=== PATIENT | male | born 1950 | race Caucasian/White ===

== ENCOUNTER 2020-11-30 11:04 | Observation (INO) | payer OTHER ==
[2020-11-30 12:04] LABS: BASO % 0.6 % (0-2.0); EOS % 2.2 % (0-4.5); HEMATOCRIT 43.6 % (35.4-49); HEMOGLOBIN 14.7 GM/dL (11.7-16.9); LYMPH % 16.8 % (8-40); MCH 29.7 pg (25.7-33.7); MCHC 33.7 g/dl (32.0-35.9); MEAN PLT VOLUME 10.6 fl (7.5-11.1); MONO % 5.9 % (3.8-10.2); NEUT % 74.5 % (42.8-82.8); PLATELET COUNT 211 K/MM3 (134-434); RBC 4.95 M/mm3 (4.00-5.60); RDW 13.1 % (11.9-15.9); WHITE BLOOD COUNT 9.4 K/mm3 (4.0-10.0)
[2020-11-30 12:33] LABS: CHLORIDE 107 mmol/L (98-107); SODIUM 140 mmol/L (136-145)
[2020-11-30 12:35] LABS: ALBUMIN 4.1 g/dl (3.4-5.0); ANION GAP 9 MMOL/L (8-16); BLOOD UREA NITROGEN 23.9 mg/dL (7-18); CALCIUM 9.3 mg/dL (8.5-10.1); CO2 23 mmol/L (21-32)
[2020-11-30 12:36] LABS: GLUCOSE,RANDOM 201 mg/dL (74-106); MAGNESIUM 1.3 mg/dL (1.8-2.4)
[2020-11-30 12:39] LABS: CREATININE 1.1 mg/dL (0.55-1.3); SGOT/AST 13 U/L (15-37); SGPT/ALT 21 U/L (13-61)
[2020-11-30 12:40] LABS: BILIRUBIN,TOTAL 0.4 mg/dL (0.2-1); TOT PROT 7.3 g/dl (6.4-8.2)
[2020-11-30 12:41] LABS: ALK PHOS 56 U/L (45-117)
[2020-11-30 12:44] LABS: N-TERMINAL BNP 351.4 pg/ml (5-125)
[2020-11-30] MEDS ORDERED: MAGNESIUM 1GM/D5W - 1 GM/100 ML IVPB IVPB ONE (12:56)
[2020-11-30] MEDS: ATORVASTATIN CA 20 MG TABLET (FP) PO SCH (23:13)
[2020-12-01 02:52] VITALS: BMI 31.6
[2020-12-01] MEDS: INSULIN (NOVOLOG) ASPART 100 UNITS/ML 10ML VIAL SQ SCH ×2 (06:34→18:14)
[2020-12-01 07:59] LABS: BASO % 0.8 % (0-2.0); EOS % 3.1 % (0-4.5); HEMATOCRIT 42.2 % (35.4-49); HEMOGLOBIN 14.4 GM/dL (11.7-16.9); MCHC 34.2 g/dl (32.0-35.9); MEAN CELL VOLUME 87.8 fl (80-96); MEAN PLT VOLUME 10.8 fl (7.5-11.1); MONO % 6.5 % (3.8-10.2); NEUT % 63.6 % (42.8-82.8); PLATELET COUNT 189 K/MM3 (134-434); RDW 13.1 % (11.9-15.9); WHITE BLOOD COUNT 8.3 K/mm3 (4.0-10.0)
[2020-12-01 08:13] LABS: CALCIUM 9.4 mg/dL (8.5-10.1)
[2020-12-01 08:14] LABS: ALBUMIN 3.8 g/dl (3.4-5.0); BLOOD UREA NITROGEN 22.1 mg/dL (7-18)
[2020-12-01 08:17] LABS: CREATININE 0.9 mg/dL (0.55-1.3)
[2020-12-01 08:18] LABS: BILIRUBIN,TOTAL 0.6 mg/dL (0.2-1); TOT PROT 6.7 g/dl (6.4-8.2)
[2020-12-01] MEDS: FINASTERIDE 5 MG TABLET (FP) PO SCH (09:50)
[2020-12-01] MEDS: ASPIRIN 81 MG CHEWABLE TABLETS PO SCH (14:05)
[2020-12-01] MEDS: metoPROLOL SUCCINATE 25 MG TAB.SR.24H (FP) PO SCH (18:14)
[2020-12-01] MEDS: ATORVASTATIN CA 20 MG TABLET (FP) PO SCH (21:33)
[2020-12-01] MEDS ORDERED: ACETAMINOPHEN 325 MG TABLET (FP) PO ONE (22:50)
[2020-12-02] MEDS ORDERED: CALCIUM CARBONATE 650 MG TABLET PO ONE (00:35)
[2020-12-02] MEDS ORDERED: INSULIN SLIDING SCALE (NOVOLOG) 1 VIAL SQ SCH (00:35)
[2020-12-02 05:25] VITALS: BP 144/55; PULSE 75; TEMP 98.8
[2020-12-02] MEDS: FINASTERIDE 5 MG TABLET (FP) PO SCH (09:25)
[2020-12-02] MEDS: metoPROLOL SUCCINATE 25 MG TAB.SR.24H (FP) PO SCH (09:25)
[2020-12-02] MEDS: ASPIRIN 81 MG CHEWABLE TABLETS PO SCH (09:25)
[2020-12-02] MEDS ORDERED: ENALAPRIL MALEATE 5 MG TABLET PO SCH (10:00)
[2020-12-02] MEDS ORDERED: ENALAPRIL MALEATE 2.5 MG TABLET PO SCH (10:00)
== END 2020-12-02 15:28 ==
LOC: JER 11:04 → JERBED 11:38 → J4W 22:32
PROVIDERS: ADMIT Internal Medicine; ATTEND Internal Medicine
PROC: 3E013VG Introduction of Insulin into Subcutaneous Tissue, Percutaneous Approach (ICD-10-PCS; principal; 2020-11-30)
PROC: 3E033GC Introduction of Other Therapeutic Substance into Peripheral Vein, Percutaneous Approach (ICD-10-PCS; 2020-11-30)
DX: R00.0 Tachycardia, unspecified (principal); R07.9 Chest pain, unspecified; E13.9 Other specified diabetes mellitus without complications; I10 Essential (primary) hypertension; E78.5 Hyperlipidemia, unspecified; E66.9 Obesity, unspecified; Z68.31 Body mass index [BMI] 31.0-31.9, adult; K21.9 Gastro-esophageal reflux disease without esophagitis; N40.0 Benign prostatic hyperplasia without lower urinary tract symptoms
CPT/HCPCS: 36415; 71046-TC-FY; 74019-TC-FY; 80053; 80061; 82550; 82962; 83036; 83721; 83735; 83880; 84443; 84484; 85025; 85379; 93005; 93010; 93306-TC; 96365; 96372; 99285-25; C9803; G0378; U0003

== ENCOUNTER 2022-02-22 08:18 | Observation (INO) | payer OTHER ==
[2022-02-22 09:34] LABS: BASO % 0.4 % (0-2.0); EOS % 3.2 % (0-4.5); HEMATOCRIT 42.7 % (35.4-49); HEMOGLOBIN 14.7 GM/dL (11.7-16.9); LYMPH % 17.9 % (8-40); MCHC 34.3 g/dl (32.0-35.9); MEAN CELL VOLUME 84.5 fl (80-96); MONO % 6.6 % (3.8-10.2); NEUT % 71.9 % (42.8-82.8); PLATELET COUNT 208 10^3/uL (134-434); RBC 5.05 M/mm3 (4.00-5.60); RDW 13.4 % (11.9-15.9); WHITE BLOOD COUNT 8.1 K/mm3 (4.0-10.0)
[2022-02-22 09:41] LABS: INR 1.01 (0.83-1.09); PROTHROMBIN TIME (PATIENT) 11.6 SEC (9.7-13.0)
[2022-02-22 09:59] LABS: ALBUMIN 3.8 g/dl (3.4-5.0); CALCIUM 9.2 mg/dL (8.5-10.1)
[2022-02-22 10:01] LABS: BLOOD UREA NITROGEN 13.1 mg/dL (7-18)
[2022-02-22 10:04] LABS: BILIRUBIN,TOTAL 0.4 mg/dL (0.2-1); CREATININE 0.8 mg/dL (0.55-1.3); TOT PROT 6.8 g/dl (6.4-8.2)
[2022-02-22] MEDS ORDERED: ASPIRIN 81 MG CHEWABLE TABLETS PO ONE (10:27)
[2022-02-22] MEDS ORDERED: ASPIRIN 81 MG CHEWABLE TABLETS ONE (11:02)
[2022-02-22] MEDS ORDERED: ACETAMINOPHEN 325 MG TABLET (FP) PO PRN (13:47)
[2022-02-22] MEDS: INSULIN SLIDING SCALE (NOVOLOG) 1 VIAL SQ SCH ×2 (19:00→23:05)
[2022-02-22] MEDS ORDERED: metFORMIN HCL 500 MG TABLET (FP) ONE (21:18)
[2022-02-22] MEDS ORDERED: ISOSORBIDE MONONITRATE 30 MG TAB.SR.24H (FP) PO ONE (21:18)
[2022-02-22] MEDS ORDERED: ATORVASTATIN CA 20 MG TABLET (FP) ONE (21:18)
[2022-02-22] MEDS ORDERED: ATORVASTATIN CA 20 MG TABLET (FP) PO SCH (22:00)
[2022-02-22] MEDS ORDERED: GLIMEPIRIDE 4 MG TABLET PO SCH (22:00)
[2022-02-22] MEDS: metFORMIN HCL 500 MG TABLET (FP) PO SCH (23:05)
[2022-02-22] MEDS: ISOSORBIDE MONONITRATE 30 MG TAB.SR.24H (FP) PO SCH (23:05)
[2022-02-22] MEDS: HEPARIN NA (PORCINE) 5,000 UNITS/ML 1ML VIAL SQ SCH (23:05)
[2022-02-23 05:17] VITALS: BMI 34.9
[2022-02-23] MEDS: metFORMIN HCL 500 MG TABLET (FP) PO SCH (06:29)
[2022-02-23] MEDS: INSULIN SLIDING SCALE (NOVOLOG) 1 VIAL SQ SCH ×2 (06:29→11:44)
[2022-02-23] MEDS ORDERED: GLIMEPIRIDE 4 MG TABLET PO SCH (07:00)
[2022-02-23 08:56] VITALS: BP 138/71; PULSE 81; TEMP 98.3
[2022-02-23] MEDS: HEPARIN NA (PORCINE) 5,000 UNITS/ML 1ML VIAL SQ SCH (09:31)
[2022-02-23] MEDS: ISOSORBIDE MONONITRATE 30 MG TAB.SR.24H (FP) PO SCH (09:46)
[2022-02-23] MEDS ORDERED: amLODIPine BESYLATE 10 MG TABLET (FP) PO SCH (10:00)
[2022-02-23] MEDS ORDERED: PANTOPRAZOLE 40 MG TABLET PO SCH (10:00)
[2022-02-23] MEDS ORDERED: LOSARTAN POTASSIUM 50 MG TABLET PO SCH (10:00)
[2022-02-23] MEDS ORDERED: FINASTERIDE 5 MG TABLET (FP) PO SCH (10:00)
[2022-02-23 12:47] LABS: BASO % 0.6 % (0-2.0); EOS % 2.4 % (0-4.5); HEMATOCRIT 41.6 % (35.4-49); LYMPH % 21.9 % (8-40); MCH 28.8 pg (25.7-33.7); MCHC 33.6 g/dl (32.0-35.9); MEAN CELL VOLUME 85.6 fl (80-96); MEAN PLT VOLUME 9.9 fl (7.5-11.1); MONO % 5.2 % (3.8-10.2); NEUT % 69.9 % (42.8-82.8); PLATELET COUNT 237 10^3/uL (134-434); RBC 4.85 M/mm3 (4.00-5.60); RDW 13.4 % (11.9-15.9); WHITE BLOOD COUNT 7.6 K/mm3 (4.0-10.0)
[2022-02-23 13:07] LABS: CALCIUM 9.5 mg/dL (8.5-10.1)
[2022-02-23 13:08] LABS: ALBUMIN 3.7 g/dl (3.4-5.0); BLOOD UREA NITROGEN 17.2 mg/dL (7-18)
[2022-02-23 13:11] LABS: CREATININE 0.9 mg/dL (0.55-1.3)
[2022-02-23 13:12] LABS: BILIRUBIN,TOTAL 0.5 mg/dL (0.2-1); TOT PROT 6.8 g/dl (6.4-8.2)
== END 2022-02-23 17:11 ==
LOC: JER 08:18 → JERBED 13:18 → J4W 02-23 05:50
PROVIDERS: ADMIT Internal Medicine; ATTEND Internal Medicine
PROC: 3E013VG Introduction of Insulin into Subcutaneous Tissue, Percutaneous Approach (ICD-10-PCS; principal; 2022-02-22)
DX: I25.10 Atherosclerotic heart disease of native coronary artery without angina pectoris (principal); E11.65 Type 2 diabetes mellitus with hyperglycemia; R07.9 Chest pain, unspecified; E66.9 Obesity, unspecified; Z68.34 Body mass index [BMI] 34.0-34.9, adult; I11.9 Hypertensive heart disease without heart failure; N40.0 Benign prostatic hyperplasia without lower urinary tract symptoms; K21.9 Gastro-esophageal reflux disease without esophagitis; E78.00 Pure hypercholesterolemia, unspecified
CPT/HCPCS: 36415; 71046-TC-FY; 80053; 82962; 84443; 84484; 85025; 85379; 85610; 86850; 86900; 86901; 93005; 93010; 93971-TC; 96372; 99285-25; C9803-CS; G0378; J1644; U0003; U0005

== ENCOUNTER 2022-05-30 10:47 | Emergency (ER) | payer OTHER ==
[2022-05-30 11:04] VITALS: BP 155/92; PULSE 86; RESP 18; TEMP 98.5; BMI 26.9
[2022-05-30 13:45] LABS: BASO % 0.5 % (0-2.0); EOS % 0.8 % (0-4.5); HEMATOCRIT 40.3 % (35.4-49); HEMOGLOBIN 13.5 GM/dL (11.7-16.9); LYMPH % 13.4 % (8-40); MCH 29.1 pg (25.7-33.7); MCHC 33.6 g/dl (32.0-35.9); MEAN CELL VOLUME 86.6 fl (80-96); MEAN PLT VOLUME 9.3 fl (7.5-11.1); MONO % 6.7 % (3.8-10.2); NEUT % 78.6 % (42.8-82.8); PLATELET COUNT 256 10^3/uL (134-434); RBC 4.65 M/mm3 (4.00-5.60); RDW 13.8 % (11.9-15.9); WHITE BLOOD COUNT 11.2 K/mm3 (4.0-10.0)
[2022-05-30 14:05] LABS: ALBUMIN 3.9 g/dl (3.4-5.0); BLOOD UREA NITROGEN 13.7 mg/dL (7-18); CALCIUM 9.9 mg/dL (8.5-10.1)
[2022-05-30 14:08] LABS: CREATININE 0.9 mg/dL (0.55-1.3)
[2022-05-30 14:10] LABS: BILIRUBIN,TOTAL 0.4 mg/dL (0.2-1); TOT PROT 7.1 g/dl (6.4-8.2)
== END 2022-05-30 14:58 | disposition home or self-care (01) ==
LOC: JERFT 10:47 → JER 10:47 → JERFT 14:58
DX: L03.113 Cellulitis of right upper limb (principal)
CPT/HCPCS: 36415; 80053; 85025; 87040; 99283-25

== ENCOUNTER 2022-07-07 09:55 | Emergency (ER) | payer OTHER ==
[2022-07-07 10:01] VITALS: BP 167/76; PULSE 73; RESP 18; TEMP 97.6; BMI 34.3
== END 2022-07-07 13:34 | disposition home or self-care (01) ==
LOC: JER 09:55
DX: U07.1 COVID-19 (principal)
CPT/HCPCS: 0241U-QW; 99283-25

== ENCOUNTER 2022-08-27 10:07 | Inpatient (IN) | payer OTHER ==
[2022-08-27 10:37] VITALS: BMI 35.0
[2022-08-27 11:52] LABS: HEMATOCRIT 39.9 % (35.4-49); HEMOGLOBIN 13.2 GM/dL (11.7-16.9); MCH 28.8 pg (25.7-33.7); MCHC 33.1 g/dl (32.0-35.9); MEAN CELL VOLUME 87.1 fl (80-96); MEAN PLT VOLUME 10.7 fl (7.5-11.1); PLATELET COUNT 235 10^3/uL (134-434); RBC 4.58 M/mm3 (4.00-5.60); RDW 14.8 % (11.9-15.9); WHITE BLOOD COUNT 16.7 K/mm3 (4.0-10.0)
[2022-08-27 12:05] LABS: VENOUS BASE EXCESS -3.3 mmol/L (-2-2); VENOUS PH 7.329 (7.310-7.410)
[2022-08-27 12:14] LABS: CHLORIDE 100 mmol/L (98-107); SODIUM 142 mmol/L (136-145)
[2022-08-27 12:15] LABS: CALCIUM 9.3 mg/dL (8.5-10.1)
[2022-08-27 12:17] LABS: BLOOD UREA NITROGEN 30.3 mg/dL (7-18); GLUCOSE,RANDOM 391 mg/dL (74-106)
[2022-08-27 12:19] LABS: ALBUMIN 3.6 g/dl (3.4-5.0); ANION GAP 17 MMOL/L (8-16); CO2 24 mmol/L (21-32); CREATININE 1.4 mg/dL (0.55-1.3); MAGNESIUM 1.7 mg/dL (1.8-2.4); PHOSPHOROUS 2.9 mg/dL (2.5-4.9); SGOT/AST 560 U/L (15-37); SGPT/ALT 520 U/L (13-61)
[2022-08-27 12:20] LABS: BILIRUBIN,TOTAL 2.8 mg/dL (0.2-1)
[2022-08-27 12:25] LABS: ALK PHOS 125 U/L (45-117); N-TERMINAL BNP 20962.5 pg/ml (5-125)
[2022-08-27 12:28] LABS: ANISOCYTOSIS 0; HELMET CELLS 0; HOWELL-JOLLY BODIES 0; MACROCYTOSIS 0; OVALOCYTE 0; ROULEAU 0; SICKELED CELLS 0; TARGET CELLS 0; TEAR DROP CELLS 0; TOXIC GRANULATION 0
[2022-08-27] MEDS ORDERED: ASPIRIN 325 MG TABLET PO ONE (13:11)
[2022-08-27] MEDS ORDERED: HEPARIN NA (PORCINE) 5,000 UNITS/ML 1ML VIAL IVPUSH PRN ×2 (13:16)
[2022-08-27] MEDS ORDERED: CLOPIDOGREL BISULFATE 300 MG TABLET PO ONE ×2 (13:17→15:29)
[2022-08-27] MEDS ORDERED: CEFTRIAXONE 1 GM in DEXTROSE 5%-WATER - 50 ML IVPB ONE (13:18)
[2022-08-27] MEDS ORDERED: AZITHROMYCIN IVPB 250 MG in DEXTROSE 5%-WATER - 250 ML IVPB ONE (13:18)
[2022-08-27] MEDS ORDERED: ASPIRIN 325 MG TABLET ONE (13:20)
[2022-08-27] MEDS ORDERED: CLOPIDOGREL BISULFATE 300 MG TABLET ONE ×2 (13:20→16:04)
[2022-08-27] MEDS ORDERED: HEPARIN SOD,PORK IN 0.45% NACL 25,000 UNITS/500 ML INFUS.BAG IVPB SCH (13:30)
[2022-08-27] MEDS ORDERED: CEFTRIAXONE 1 GM/50 ML BAG ONE (13:31)
[2022-08-27] MEDS ORDERED: WATER IVPB ONE ×2 (13:35→14:00)
[2022-08-27] MEDS ORDERED: DEXTROSE 5% IVPB ONE ×2 (13:35→14:00)
[2022-08-27] MEDS ORDERED: ACETYLCYSTEINE IVPB ONE ×2 (13:35→14:00)
[2022-08-27 13:44] LABS: INR 1.39 (0.83-1.09)
[2022-08-27 13:46] LABS: ACTIVATED PTT 32.7 SECONDS (25.2-36.5)
[2022-08-27 13:55] LABS: CHLORIDE 101 mmol/L (98-107)
[2022-08-27 13:56] LABS: CALCIUM 8.4 mg/dL (8.5-10.1)
[2022-08-27 13:57] LABS: BLOOD UREA NITROGEN 31.9 mg/dL (7-18); CO2 24 mmol/L (21-32); GLUCOSE,RANDOM 381 mg/dL (74-106)
[2022-08-27] MEDS ORDERED: FUROSEMIDE 40 MG/4 ML INJECTABLE VIAL IVPUSH ONE (13:59)
[2022-08-27 14:01] LABS: SGOT/AST 437 U/L (15-37); SGPT/ALT 436 U/L (13-61)
[2022-08-27 14:04] LABS: ALK PHOS 100 U/L (45-117)
[2022-08-27 14:05] LABS: N-TERMINAL BNP 19721.7 pg/ml (5-125)
[2022-08-27] MEDS ORDERED: HEPARIN NA (PORCINE) 5,000 UNITS/ML 1ML VIAL IVPUSH ONE (14:10)
[2022-08-27 14:13] LABS: ANION GAP 15 MMOL/L (8-16); BILIRUBIN,TOTAL 1.9 mg/dL (0.2-1); CREATININE 1.5 mg/dL (0.55-1.3); SODIUM 141 mmol/L (136-145)
[2022-08-27] MEDS ORDERED: FUROSEMIDE 40 MG/4 ML INJECTABLE VIAL ONE (14:14)
[2022-08-27] MEDS ORDERED: HEPARIN NA (PORCINE) 5,000 UNITS/ML 1ML VIAL ONE (14:14)
[2022-08-27] MEDS ORDERED: ATORVASTATIN CA 80 MG TABLET (FP) ONE (19:36)
[2022-08-27] MEDS: INSULIN SLIDING SCALE (NOVOLOG) 1 VIAL SQ SCH ×2 (19:40→21:43)
[2022-08-27] MEDS ORDERED: PATIENT'S OWN MEDICATION (NON-FORMULARY) (Metformin Hcl [Metformin Er Osmotic] 1,000 MG Ta PO SCH (22:00)
[2022-08-27] MEDS ORDERED: CHLORHEXIDINE GLUCONATE 4% CLEANSER FOR DECOLONIZATION TP SCH (22:00)
[2022-08-27] MEDS ORDERED: MUPIROCIN 2% TOPICAL OINTMENT FOR DECOLONIZATION NS SCH (22:00)
[2022-08-27] MEDS ORDERED: ATORVASTATIN CA 40 MG TABLET (FP) PO SCH (22:00)
[2022-08-27] MEDS ORDERED: METOPROLOL TARTRATE 25 MG TABLET (FP) PO SCH (22:00)
[2022-08-27] MEDS ORDERED: ATORVASTATIN CA 20 MG TABLET (FP) PO SCH (22:00)
[2022-08-28 00:55] LABS: HEMATOCRIT 37.7 % (35.4-49); HEMOGLOBIN 12.3 GM/dL (11.7-16.9); MCH 28.5 pg (25.7-33.7); MCHC 32.7 g/dl (32.0-35.9); MEAN CELL VOLUME 87.2 fl (80-96); MEAN PLT VOLUME 11.4 fl (7.5-11.1); PLATELET COUNT 223 10^3/uL (134-434); RBC 4.33 M/mm3 (4.00-5.60); RDW 14.3 % (11.9-15.9); WHITE BLOOD COUNT 12.9 K/mm3 (4.0-10.0)
[2022-08-28 02:14] LABS: CALCIUM 8.9 mg/dL (8.5-10.1)
[2022-08-28 02:15] LABS: BLOOD UREA NITROGEN 36.9 mg/dL (7-18)
[2022-08-28 02:17] LABS: MAGNESIUM 1.8 mg/dL (1.8-2.4)
[2022-08-28 02:19] LABS: CREATININE 1.4 mg/dL (0.55-1.3); PHOSPHOROUS 1.8 mg/dL (2.5-4.9)
[2022-08-28 02:24] LABS: N-TERMINAL BNP 21616.8 pg/ml (5-125)
[2022-08-28] MEDS ORDERED: FUROSEMIDE 40 MG/4 ML INJECTABLE VIAL IVPUSH ONE (02:40)
[2022-08-28 05:06] LABS: ANISOCYTOSIS 3+; MACROCYTOSIS 0
[2022-08-28] MEDS: INSULIN SLIDING SCALE (NOVOLOG) 1 VIAL SQ SCH ×2 (06:28→11:36)
[2022-08-28 08:26] LABS: CHLORIDE 106 mmol/L (98-107); SODIUM 144 mmol/L (136-145)
[2022-08-28 08:31] LABS: ALBUMIN 2.8 g/dl (3.4-5.0); ANION GAP 13 MMOL/L (8-16); BLOOD UREA NITROGEN 39.8 mg/dL (7-18); CALCIUM 8.3 mg/dL (8.5-10.1); CO2 24 mmol/L (21-32); GLUCOSE,RANDOM 191 mg/dL (74-106); MAGNESIUM 1.8 mg/dL (1.8-2.4)
[2022-08-28 08:33] LABS: CREATININE 1.3 mg/dL (0.55-1.3); SGPT/ALT 306 U/L (13-61)
[2022-08-28 08:33] LABS: EPI CELLS 5 /uL (0-25.1); HYALINE CASTS 5 /uL (0-3.1); URINE APPEARANCE CLEAR; URINE BACTERIA 4 /uL (0-1359); URINE BILIRUBIN 2+ (NEGATIVE); URINE COLOR DK YELLOW; URINE GLUCOSE (UA) 3+ (NEGATIVE); URINE KETONE 1+ (NEGATIVE); URINE LEUK ESTERASE NEGATIVE (NEGATIVE); URINE NITRITE NEGATIVE (NEGATIVE); URINE PROTEIN 2+ (NEGATIVE); URINE RBC 54 /uL (0-23.9); URINE WBC 44 /uL (0-25.8)
[2022-08-28 08:34] LABS: CHOLESTEROL 139 mg/dL (50-200); LDL CHOLESTEROL (ONLY SJRH) 75 mg/dL (5-100); SGOT/AST 250 U/L (15-37); TOT PROT 5.8 g/dl (6.4-8.2); TRIGLYCERIDES 239 mg/dL (0-150)
[2022-08-28 08:35] LABS: BILIRUBIN,TOTAL 1.5 mg/dL (0.2-1)
[2022-08-28 08:36] LABS: ALK PHOS 96 U/L (45-117); HDL CHOLESTEROL 23 mg/dL (40-60); N-TERMINAL BNP 15963.4 pg/ml (5-125)
[2022-08-28] MEDS ORDERED: DOPAMINE 400 MG/D5W - 400,000 MCG/250 ML INFUS.BAG IVPB SCH (08:45)
[2022-08-28] MEDS ORDERED: ATORVASTATIN CA 40 MG TABLET (FP) PO SCH (09:49)
[2022-08-28] MEDS ORDERED: amLODIPine BESYLATE 10 MG TABLET (FP) PO SCH (10:00)
[2022-08-28] MEDS ORDERED: CLOPIDOGREL BISULFATE 75 MG TABLET (FP) PO SCH (10:00)
[2022-08-28] MEDS ORDERED: ASPIRIN 81 MG CHEWABLE TABLETS PO SCH (10:00)
[2022-08-28] MEDS ORDERED: MUPIROCIN 2% TOPICAL OINTMENT FOR DECOLONIZATION NS SCH (10:00)
[2022-08-28] MEDS ORDERED: PANTOPRAZOLE 40 MG TABLET PO SCH (10:00)
[2022-08-28] MEDS ORDERED: FINASTERIDE 5 MG TABLET (FP) PO SCH (10:00)
[2022-08-28] MEDS ORDERED: NITROGLYCERIN 25MG/D5W 250ML 25 MG/250 ML ML IVPB ONE (10:02)
[2022-08-28] MEDS ORDERED: POTASSIUM CHLORIDE ORAL LIQUID 20 MEQ/15 ML PO ONE (10:10)
[2022-08-28 10:49] VITALS: RESP 20
[2022-08-28 10:50] VITALS: TEMP 98.8
[2022-08-28] MEDS ORDERED: CEFTRIAXONE 1 GM in DEXTROSE 5%-WATER - 50 ML IVPB SCH ×2 (11:00→13:00)
[2022-08-28 11:22] VITALS: BP 98/54; PULSE 81
[2022-08-28] MEDS ORDERED: ROSUVASTATIN CA 20 MG TABLET PO SCH (22:00)
[2022-08-28] MEDS ORDERED: CHLORHEXIDINE GLUCONATE 4% CLEANSER FOR DECOLONIZATION TP SCH (22:00)
== END 2022-08-28 12:10 | disposition short-term general hospital (02) | DRG 280 ==
LOC: JER 10:07 → JERBED 14:58 → JICU 23:48
PROVIDERS: ADMIT Internal Medicine; ATTEND Internal Medicine
DX: I21.4 Non-ST elevation (NSTEMI) myocardial infarction (principal); I50.21 Acute systolic (congestive) heart failure; I50.33 Acute on chronic diastolic (congestive) heart failure; R57.0 Cardiogenic shock; J18.9 Pneumonia, unspecified organism; N17.9 Acute kidney failure, unspecified; I42.8 Other cardiomyopathies; J90 Pleural effusion, not elsewhere classified; E11.9 Type 2 diabetes mellitus without complications; I11.0 Hypertensive heart disease with heart failure; I48.91 Unspecified atrial fibrillation; I25.10 Atherosclerotic heart disease of native coronary artery without angina pectoris; K21.9 Gastro-esophageal reflux disease without esophagitis; E78.5 Hyperlipidemia, unspecified; N40.0 Benign prostatic hyperplasia without lower urinary tract symptoms; R74.01 Elevation of levels of liver transaminase levels
CPT/HCPCS: 0241U-QW; 36415; 71045-TC-FY; 71275-TC; 76705-TC; 80048; 80053; 80061; 80076; 80307; 81003; 82150; 82550; 82553; 82803; 82962; 83036; 83605; 83690; 83735; 83880; 84100; 84443; 84484; 85025; 85379; 85610; 85730; 86705; 86708; 86850; 86900; 86901; 87040; 87340; 87350; 87522; 93005; 93010; 93306-TC; 99291; J1644

== ENCOUNTER 2022-11-16 12:47 | Inpatient (IN) | payer OTHER ==
[2022-11-16 14:00] LABS: BASO % 0.4 % (0-2.0); EOS % 0.9 % (0-4.5); HEMATOCRIT 29.6 % (35.4-49); HEMOGLOBIN 9.9 GM/dL (11.7-16.9); MCH 29.8 pg (25.7-33.7); MCHC 33.3 g/dl (32.0-35.9); MEAN CELL VOLUME 89.3 fl (80-96); MEAN PLT VOLUME 9.8 fl (7.5-11.1); MONO % 4.9 % (3.8-10.2); NEUT % 81.8 % (42.8-82.8); PLATELET COUNT 260 10^3/uL (134-434); RBC 3.31 M/mm3 (4.00-5.60); RDW 15.7 % (11.9-15.9); WHITE BLOOD COUNT 9.4 K/mm3 (4.0-10.0)
[2022-11-16 14:09] LABS: INR 1.17 (0.83-1.09); PROTHROMBIN TIME (PATIENT) 13.5 SEC (9.7-13.0)
[2022-11-16 14:12] LABS: ACTIVATED PTT 30.2 SECONDS (25.2-36.5)
[2022-11-16 14:26] LABS: CHLORIDE 116 mmol/L (98-107); SODIUM 141 mmol/L (136-145)
[2022-11-16 14:28] LABS: CALCIUM 8.7 mg/dL (8.5-10.1)
[2022-11-16 14:29] LABS: ALBUMIN 3.1 g/dl (3.4-5.0); ANION GAP 12 MMOL/L (8-16); BLOOD UREA NITROGEN 39.6 mg/dL (7-18); CO2 14 mmol/L (21-32); GLUCOSE,RANDOM 191 mg/dL (74-106); MAGNESIUM 1.7 mg/dL (1.8-2.4)
[2022-11-16 14:32] LABS: CREATININE 1.7 mg/dL (0.55-1.3); SGOT/AST 56 U/L (15-37); SGPT/ALT 109 U/L (13-61)
[2022-11-16 14:34] LABS: BILIRUBIN,TOTAL 0.3 mg/dL (0.2-1)
[2022-11-16 14:35] LABS: ALK PHOS 143 U/L (45-117)
[2022-11-16 14:37] LABS: N-TERMINAL BNP 17507.2 pg/ml (5-125)
[2022-11-16] MEDS ORDERED: ASPIRIN 81 MG CHEWABLE TABLETS PO ONE (14:44)
[2022-11-16] MEDS ORDERED: ASPIRIN 81 MG CHEWABLE TABLETS ONE (14:49)
[2022-11-16] MEDS ORDERED: DEXAMETHASONE SOD PHOSPHATE 10 MG/1 ML VIAL IVPUSH ONE (15:01)
[2022-11-16 17:37] VITALS: BMI 30.9
[2022-11-16] MEDS ORDERED: ATORVASTATIN CA 20 MG TABLET (FP) PO SCH (22:00)
[2022-11-16] MEDS ORDERED: PATIENT'S OWN MEDICATION (NON-FORMULARY) (Simvastatin 40 MG Tablet) PO SCH (22:00)
[2022-11-17] MEDS: FINASTERIDE 5 MG TABLET (FP) PO SCH (09:06)
[2022-11-17] MEDS ORDERED: amLODIPine BESYLATE 10 MG TABLET (FP) PO SCH (10:00)
[2022-11-17] MEDS ORDERED: PATIENT'S OWN MEDICATION (NON-FORMULARY) (Metformin Hcl [Metformin Er Osmotic] 1,000 MG Ta PO SCH (10:00)
[2022-11-17] MEDS ORDERED: metoPROLOL SUCCINATE 25 MG TAB.SR.24H (FP) PO SCH (10:00)
[2022-11-17] MEDS ORDERED: hydrALAZINE HCL 50 MG TABLET (FP) PO SCH (10:00)
[2022-11-17] MEDS ORDERED: LOSARTAN POTASSIUM 50 MG TABLET PO SCH (10:00)
[2022-11-17] MEDS ORDERED: PATIENT'S OWN MEDICATION (NON-FORMULARY) (Losartan Potassium [Cozaar] 100 MG Tablet) PO SCH (10:00)
[2022-11-17] MEDS: FUROSEMIDE 40 MG/4 ML INJECTABLE VIAL IVPUSH SCH (10:03)
[2022-11-17] MEDS ORDERED: ERTAPENEM SODIUM 1 GM in SODIUM CHLORIDE 50 ML IVPB ONE (11:00)
[2022-11-17] MEDS ORDERED: CLOPIDOGREL BISULFATE 75 MG TABLET (FP) PO ONE ×2 (12:56→13:30)
[2022-11-17] MEDS: APIXABAN 5 MG TABLET PO SCH ×2 (13:32→21:47)
[2022-11-17] MEDS: ALBUTEROL SO4 2.5/IPRATROPIUM 0.5 INH SOL 3 ML VIAL.NEB. NEB PRN (21:30)
[2022-11-18 07:33] LABS: CREATININE 1.2 mg/dL (0.55-1.3)
[2022-11-18 07:34] LABS: ALBUMIN 3.3 g/dl (3.4-5.0); BLOOD UREA NITROGEN 27.2 mg/dL (7-18)
[2022-11-18 07:35] LABS: BILIRUBIN,TOTAL 0.4 mg/dL (0.2-1); TOT PROT 6.4 g/dl (6.4-8.2)
[2022-11-18 07:42] LABS: CALCIUM 9.4 mg/dL (8.5-10.1)
[2022-11-18] MEDS: ALBUTEROL SO4 2.5/IPRATROPIUM 0.5 INH SOL 3 ML VIAL.NEB. NEB PRN (08:13)
[2022-11-18 08:23] LABS: BASO % 0.2 % (0-2.0); EOS % 2.9 % (0-4.5); HEMATOCRIT 33.7 % (35.4-49); HEMOGLOBIN 11.2 GM/dL (11.7-16.9); MCH 29.2 pg (25.7-33.7); MCHC 33.1 g/dl (32.0-35.9); MEAN CELL VOLUME 88.1 fl (80-96); MEAN PLT VOLUME 9.7 fl (7.5-11.1); MONO % 5.9 % (3.8-10.2); PLATELET COUNT 291 10^3/uL (134-434); RBC 3.82 M/mm3 (4.00-5.60); RDW 15.9 % (11.9-15.9); WHITE BLOOD COUNT 10.7 K/mm3 (4.0-10.0)
[2022-11-18] MEDS: FINASTERIDE 5 MG TABLET (FP) PO SCH (09:58)
[2022-11-18] MEDS: APIXABAN 5 MG TABLET PO SCH ×2 (09:58→21:45)
[2022-11-18] MEDS: FUROSEMIDE 40 MG/4 ML INJECTABLE VIAL IVPUSH SCH (09:59)
[2022-11-18] MEDS: AMIODARONE HCL 200 MG TABLET PO SCH ×2 (09:59→21:45)
[2022-11-18] MEDS: CLOPIDOGREL BISULFATE 75 MG TABLET (FP) PO SCH (09:59)
[2022-11-19] MEDS ORDERED: FUROSEMIDE 40 MG/4 ML INJECTABLE VIAL IVPUSH ONE (06:08)
[2022-11-19 07:15] LABS: BLOOD UREA NITROGEN 27.2 mg/dL (7-18)
[2022-11-19 07:16] LABS: CALCIUM 9.1 mg/dL (8.5-10.1)
[2022-11-19 07:18] LABS: CREATININE 1.2 mg/dL (0.55-1.3)
[2022-11-19] MEDS: ALBUTEROL SO4 2.5/IPRATROPIUM 0.5 INH SOL 3 ML VIAL.NEB. NEB PRN (08:33)
[2022-11-19] MEDS: AMIODARONE HCL 200 MG TABLET PO SCH ×2 (09:51→21:59)
[2022-11-19] MEDS: FINASTERIDE 5 MG TABLET (FP) PO SCH (09:51)
[2022-11-19] MEDS: CLOPIDOGREL BISULFATE 75 MG TABLET (FP) PO SCH (09:51)
[2022-11-19] MEDS: APIXABAN 5 MG TABLET PO SCH ×2 (09:51→21:59)
[2022-11-19] MEDS: FUROSEMIDE 40 MG/4 ML INJECTABLE VIAL IVPUSH SCH ×2 (11:52→14:22)
[2022-11-20] MEDS: FUROSEMIDE 40 MG/4 ML INJECTABLE VIAL IVPUSH SCH ×2 (06:23→15:01)
[2022-11-20 07:51] LABS: ALBUMIN 3.2 g/dl (3.4-5.0); CALCIUM 9.3 mg/dL (8.5-10.1)
[2022-11-20 07:52] LABS: BLOOD UREA NITROGEN 32.2 mg/dL (7-18); MAGNESIUM 1.6 mg/dL (1.8-2.4)
[2022-11-20 07:54] LABS: BILIRUBIN,DIRECT 0.1 mg/dL (0.0-0.2)
[2022-11-20 07:55] LABS: CREATININE 1.3 mg/dL (0.55-1.3)
[2022-11-20 07:56] LABS: BILIRUBIN,TOTAL 0.6 mg/dL (0.2-1); TOT PROT 6.1 g/dl (6.4-8.2)
[2022-11-20] MEDS: SACUBITRIL/VALSARTAN 24 MG-26 MG TABLET PO SCH ×2 (10:50→22:05)
[2022-11-20] MEDS: AMIODARONE HCL 200 MG TABLET PO SCH ×2 (10:51→22:05)
[2022-11-20] MEDS: CLOPIDOGREL BISULFATE 75 MG TABLET (FP) PO SCH (10:52)
[2022-11-20] MEDS: FINASTERIDE 5 MG TABLET (FP) PO SCH (10:52)
[2022-11-20] MEDS: APIXABAN 5 MG TABLET PO SCH ×2 (10:52→22:06)
[2022-11-21] MEDS: FUROSEMIDE 40 MG/4 ML INJECTABLE VIAL IVPUSH SCH ×2 (06:26→14:08)
[2022-11-21] MEDS: APIXABAN 5 MG TABLET PO SCH ×2 (09:20→21:42)
[2022-11-21] MEDS: CLOPIDOGREL BISULFATE 75 MG TABLET (FP) PO SCH (09:20)
[2022-11-21] MEDS: AMIODARONE HCL 200 MG TABLET PO SCH ×2 (09:20→21:42)
[2022-11-21] MEDS: SACUBITRIL/VALSARTAN 24 MG-26 MG TABLET PO SCH ×2 (09:21→21:42)
[2022-11-21] MEDS: FINASTERIDE 5 MG TABLET (FP) PO SCH (09:21)
[2022-11-21] MEDS ORDERED: MAGNESIUM SULF 50% (8.12 MEQ/2 ML-1 GM VIAL) IVPB ONE (11:45)
[2022-11-22] MEDS: FUROSEMIDE 40 MG/4 ML INJECTABLE VIAL IVPUSH SCH ×2 (06:44→14:34)
[2022-11-22 08:31] LABS: BASO % 0.4 % (0-2.0); EOS % 2.6 % (0-4.5); HEMATOCRIT 35.6 % (35.4-49); HEMOGLOBIN 11.7 GM/dL (11.7-16.9); LYMPH % 11.7 % (8-40); MCH 28.5 pg (25.7-33.7); MCHC 32.8 g/dl (32.0-35.9); MEAN CELL VOLUME 86.8 fl (80-96); MEAN PLT VOLUME 9.6 fl (7.5-11.1); MONO % 6.4 % (3.8-10.2); NEUT % 78.9 % (42.8-82.8); PLATELET COUNT 266 10^3/uL (134-434); RDW 15.8 % (11.9-15.9); WHITE BLOOD COUNT 11.4 K/mm3 (4.0-10.0)
[2022-11-22] MEDS: FINASTERIDE 5 MG TABLET (FP) PO SCH (09:18)
[2022-11-22] MEDS: CLOPIDOGREL BISULFATE 75 MG TABLET (FP) PO SCH (09:18)
[2022-11-22] MEDS: APIXABAN 5 MG TABLET PO SCH ×2 (09:18→22:24)
[2022-11-22] MEDS: AMIODARONE HCL 200 MG TABLET PO SCH ×2 (09:18→22:24)
[2022-11-22] MEDS: SACUBITRIL/VALSARTAN 24 MG-26 MG TABLET PO SCH ×2 (09:19→22:24)
[2022-11-22 09:25] LABS: CALCIUM 9.3 mg/dL (8.5-10.1)
[2022-11-22 09:26] LABS: ALBUMIN 3.2 g/dl (3.4-5.0); BLOOD UREA NITROGEN 40.9 mg/dL (7-18)
[2022-11-22 09:29] LABS: CREATININE 1.4 mg/dL (0.55-1.3)
[2022-11-22 09:30] LABS: BILIRUBIN,TOTAL 0.4 mg/dL (0.2-1); TOT PROT 6.5 g/dl (6.4-8.2)
[2022-11-23 03:29] LABS: MAGNESIUM 1.6 mg/dL (1.8-2.4)
[2022-11-23 03:33] LABS: PHOSPHOROUS 3.5 mg/dL (2.5-4.9)
[2022-11-23] MEDS ORDERED: MAGNESIUM SULFATE IN WATER 2 GM/50 ML IVPB IVPB ONE (05:07)
[2022-11-23] MEDS ORDERED: MAGNESIUM OXIDE 400 MG TABLET (FP) PO ONE (05:07)
[2022-11-23] MEDS: FUROSEMIDE 40 MG/4 ML INJECTABLE VIAL IVPUSH SCH (05:33)
[2022-11-23] MEDS: AMIODARONE HCL 200 MG TABLET PO SCH ×3 (09:26→21:26)
[2022-11-23] MEDS: CLOPIDOGREL BISULFATE 75 MG TABLET (FP) PO SCH (09:27)
[2022-11-23] MEDS: FINASTERIDE 5 MG TABLET (FP) PO SCH (09:27)
[2022-11-23] MEDS: APIXABAN 5 MG TABLET PO SCH ×2 (09:27→21:25)
[2022-11-23] MEDS: SACUBITRIL/VALSARTAN 24 MG-26 MG TABLET PO SCH ×2 (09:27→21:27)
[2022-11-23] MEDS ORDERED: ATORVASTATIN CA 20 MG TABLET (FP) ONE (21:14)
[2022-11-23] MEDS ORDERED: ATORVASTATIN CA 40 MG TABLET (FP) PO SCH (22:00)
[2022-11-24] MEDS ORDERED: TORSEMIDE 20 MG TABLET (FP) PO SCH (10:00)
[2022-11-24] MEDS: SACUBITRIL/VALSARTAN 24 MG-26 MG TABLET PO SCH (10:01)
[2022-11-24] MEDS: AMIODARONE HCL 200 MG TABLET PO SCH (10:01)
[2022-11-24] MEDS: CLOPIDOGREL BISULFATE 75 MG TABLET (FP) PO SCH (10:02)
[2022-11-24] MEDS: FINASTERIDE 5 MG TABLET (FP) PO SCH (10:02)
[2022-11-24] MEDS: APIXABAN 5 MG TABLET PO SCH (10:02)
[2022-11-24 15:51] VITALS: TEMP 98
[2022-11-24 15:52] VITALS: BP 105/68; PULSE 78; RESP 18
== END 2022-11-24 15:55 | disposition home or self-care (01) | DRG 291 ==
LOC: JER 12:47 → JERBED 14:57 → J4W 15:45 → OBSVTOIN 11-18 08:28
PROVIDERS: ADMIT Internal Medicine; ATTEND Internal Medicine
DX: I11.0 Hypertensive heart disease with heart failure (principal); I50.23 Acute on chronic systolic (congestive) heart failure; J18.9 Pneumonia, unspecified organism; N17.9 Acute kidney failure, unspecified; I47.20 Ventricular tachycardia, unspecified; E78.5 Hyperlipidemia, unspecified; I27.20 Pulmonary hypertension, unspecified; I25.10 Atherosclerotic heart disease of native coronary artery without angina pectoris; I48.91 Unspecified atrial fibrillation; E11.9 Type 2 diabetes mellitus without complications; N40.0 Benign prostatic hyperplasia without lower urinary tract symptoms; K21.9 Gastro-esophageal reflux disease without esophagitis; D64.9 Anemia, unspecified; N28.1 Cyst of kidney, acquired; I25.2 Old myocardial infarction; I25.5 Ischemic cardiomyopathy; Z95.810 Presence of automatic (implantable) cardiac defibrillator; Z88.0 Allergy status to penicillin
CPT/HCPCS: 0241U-QW; 36415; 71045-TC-FY; 76775-TC; 80048; 80053; 80076; 82550; 82962; 83735; 83880; 84100; 84484; 85025; 85610; 85730; 87899; 93005; 93010; 94640; 94761; 97116-GP; 97162-GP; 99285-25; C9803-CS; G0378; U0003; U0005

== ENCOUNTER 2022-12-08 10:26 | Inpatient (IN) | payer OTHER ==
[2022-12-08 10:43] VITALS: BMI 30.9
[2022-12-08 11:04] LABS: BASO % 0.3 % (0-2.0); EOS % 2.3 % (0-4.5); HEMATOCRIT 37.8 % (35.4-49); HEMOGLOBIN 12.8 GM/dL (11.7-16.9); LYMPH % 16.5 % (8-40); MCH 28.9 pg (25.7-33.7); MEAN CELL VOLUME 84.9 fl (80-96); MEAN PLT VOLUME 10.6 fl (7.5-11.1); NEUT % 73.9 % (42.8-82.8); PLATELET COUNT 238 10^3/uL (134-434); RBC 4.45 M/mm3 (4.00-5.60); WHITE BLOOD COUNT 9.9 K/mm3 (4.0-10.0)
[2022-12-08 11:27] LABS: CALCIUM 9.1 mg/dL (8.5-10.1)
[2022-12-08 11:28] LABS: ALBUMIN 3.7 g/dl (3.4-5.0); BLOOD UREA NITROGEN 82.4 mg/dL (7-18)
[2022-12-08 11:31] LABS: CREATININE 2.7 mg/dL (0.55-1.3); PHOSPHOROUS 3.3 mg/dL (2.5-4.9)
[2022-12-08 11:32] LABS: BILIRUBIN,TOTAL 0.6 mg/dL (0.2-1); TOT PROT 6.6 g/dl (6.4-8.2)
[2022-12-08 11:34] LABS: INR 1.49 (0.83-1.09); PROTHROMBIN TIME (PATIENT) 17.2 SEC (9.7-13.0)
[2022-12-08 11:36] LABS: N-TERMINAL BNP 6202.3 pg/ml (5-125)
[2022-12-08 11:37] LABS: ACTIVATED PTT 33.3 SECONDS (25.2-36.5)
[2022-12-08] MEDS ORDERED: ASPIRIN 81 MG CHEWABLE TABLETS PO ONE (11:55)
[2022-12-08] MEDS ORDERED: POTASSIUM CHLORIDE TABS 20 MEQ TABLET.ER (FP) PO ONE ×2 (12:26→12:50)
[2022-12-08] MEDS ORDERED: ASPIRIN 81 MG CHEWABLE TABLETS ONE (12:41)
[2022-12-08] MEDS ORDERED: ALBUTEROL SO4 2.5/IPRATROPIUM 0.5 INH SOL 3 ML VIAL.NEB. NEB PRN (13:06)
[2022-12-08] MEDS: PANTOPRAZOLE SODIUM 40 MG VIAL IVPUSH SCH (21:31)
[2022-12-08] MEDS ORDERED: SACUBITRIL/VALSARTAN 24 MG-26 MG TABLET PO SCH (22:00)
[2022-12-08] MEDS ORDERED: TRIMETHOBENZAMIDE HCL 200MG/2ML INJ IM PRN (23:02)
[2022-12-08] MEDS: INSULIN SLIDING SCALE (NOVOLOG) 1 VIAL SQ SCH (23:10)
[2022-12-08] MEDS ORDERED: INSULIN (NOVOLOG) ASPART 100 UNITS/ML 10ML VIAL SQ ONE (23:30)
[2022-12-09] MEDS: ATORVASTATIN CA 40 MG TABLET (FP) PO SCH ×2 (00:03→21:08)
[2022-12-09] MEDS: APIXABAN 5 MG TABLET PO SCH ×3 (00:03→21:08)
[2022-12-09] MEDS: MAGNESIUM OXIDE 400 MG TABLET (FP) PO SCH ×3 (00:04→21:08)
[2022-12-09] MEDS: INSULIN SLIDING SCALE (NOVOLOG) 1 VIAL SQ SCH ×3 (06:13→17:29)
[2022-12-09 08:07] LABS: BASO % 0.3 % (0-2.0); EOS % 2.2 % (0-4.5); HEMATOCRIT 37.1 % (35.4-49); HEMOGLOBIN 12.5 GM/dL (11.7-16.9); LYMPH % 19.2 % (8-40); MCHC 33.7 g/dl (32.0-35.9); MEAN CELL VOLUME 86.1 fl (80-96); MEAN PLT VOLUME 11.4 fl (7.5-11.1); MONO % 5.6 % (3.8-10.2); NEUT % 72.7 % (42.8-82.8); PLATELET COUNT 212 10^3/uL (134-434); RBC 4.32 M/mm3 (4.00-5.60); WHITE BLOOD COUNT 8.8 K/mm3 (4.0-10.0)
[2022-12-09] MEDS ORDERED: TORSEMIDE 20 MG TABLET (FP) PO SCH (10:00)
[2022-12-09] MEDS ORDERED: PANTOPRAZOLE 40 MG TABLET PO SCH (10:00)
[2022-12-09] MEDS: CLOPIDOGREL BISULFATE 75 MG TABLET (FP) PO SCH (10:55)
[2022-12-09] MEDS: FINASTERIDE 5 MG TABLET (FP) PO SCH (10:56)
[2022-12-09] MEDS: INSULIN (LEVEMIR) 100 UNITS/ML UNITS SQ SCH ×2 (10:56→21:08)
[2022-12-09] MEDS: PANTOPRAZOLE SODIUM 40 MG VIAL IVPUSH SCH (10:57)
[2022-12-09] MEDS: AMIODARONE HCL 200 MG TABLET PO SCH (10:57)
[2022-12-10] MEDS: INSULIN SLIDING SCALE (NOVOLOG) 1 VIAL SQ SCH ×3 (06:14→16:56)
[2022-12-10 08:38] LABS: ALBUMIN 3.4 g/dl (3.4-5.0)
[2022-12-10 08:40] LABS: CREATININE 1.5 mg/dL (0.55-1.3)
[2022-12-10 08:42] LABS: BILIRUBIN,TOTAL 0.5 mg/dL (0.2-1); TOT PROT 5.8 g/dl (6.4-8.2)
[2022-12-10 09:05] LABS: BLOOD UREA NITROGEN 45.9 mg/dL (7-18)
[2022-12-10] MEDS: APIXABAN 5 MG TABLET PO SCH ×2 (09:51→22:10)
[2022-12-10] MEDS: FINASTERIDE 5 MG TABLET (FP) PO SCH (09:51)
[2022-12-10] MEDS: INSULIN (LEVEMIR) 100 UNITS/ML UNITS SQ SCH ×2 (09:51→22:08)
[2022-12-10] MEDS: AMIODARONE HCL 200 MG TABLET PO SCH (09:51)
[2022-12-10] MEDS: MAGNESIUM OXIDE 400 MG TABLET (FP) PO SCH ×2 (09:51→22:10)
[2022-12-10] MEDS: PANTOPRAZOLE SODIUM 40 MG VIAL IVPUSH SCH (09:51)
[2022-12-10] MEDS: CLOPIDOGREL BISULFATE 75 MG TABLET (FP) PO SCH (09:51)
[2022-12-10] MEDS ORDERED: POTASSIUM CHLORIDE ORAL LIQUID 20 MEQ/15 ML PO ONE (11:30)
[2022-12-10] MEDS: MIRTAZAPINE 15 MG TABLET (FP) PO SCH (22:09)
[2022-12-10] MEDS: ATORVASTATIN CA 40 MG TABLET (FP) PO SCH (22:10)
[2022-12-11] MEDS: INSULIN (LEVEMIR) 100 UNITS/ML UNITS SQ SCH ×2 (06:48→22:16)
[2022-12-11] MEDS: INSULIN SLIDING SCALE (NOVOLOG) 1 VIAL SQ SCH ×3 (06:48→17:19)
[2022-12-11] MEDS: FINASTERIDE 5 MG TABLET (FP) PO SCH (09:16)
[2022-12-11] MEDS: CLOPIDOGREL BISULFATE 75 MG TABLET (FP) PO SCH (09:16)
[2022-12-11] MEDS: PANTOPRAZOLE SODIUM 40 MG VIAL IVPUSH SCH (09:17)
[2022-12-11] MEDS: APIXABAN 5 MG TABLET PO SCH ×2 (09:17→22:16)
[2022-12-11] MEDS: MAGNESIUM OXIDE 400 MG TABLET (FP) PO SCH ×2 (09:17→22:15)
[2022-12-11] MEDS: AMIODARONE HCL 200 MG TABLET PO SCH (10:56)
[2022-12-11] MEDS: PATIENT'S OWN MEDICATION (NON-FORMULARY) (Empagliflozin [Jardiance] 10 MG Tablet) PO SCH ×2 (18:21→23:06)
[2022-12-11] MEDS: MIRTAZAPINE 15 MG TABLET (FP) PO SCH (22:14)
[2022-12-11] MEDS: ATORVASTATIN CA 40 MG TABLET (FP) PO SCH (22:15)
[2022-12-12] MEDS: INSULIN (LEVEMIR) 100 UNITS/ML UNITS SQ SCH ×2 (06:27→22:25)
[2022-12-12] MEDS: INSULIN SLIDING SCALE (NOVOLOG) 1 VIAL SQ SCH ×3 (06:28→16:51)
[2022-12-12 08:12] LABS: CALCIUM 8.9 mg/dL (8.5-10.1)
[2022-12-12 08:13] LABS: BLOOD UREA NITROGEN 31.8 mg/dL (7-18)
[2022-12-12 08:15] LABS: CREATININE 1.4 mg/dL (0.55-1.3)
[2022-12-12] MEDS: CLOPIDOGREL BISULFATE 75 MG TABLET (FP) PO SCH (10:23)
[2022-12-12] MEDS: PANTOPRAZOLE SODIUM 40 MG VIAL IVPUSH SCH (10:23)
[2022-12-12] MEDS: FINASTERIDE 5 MG TABLET (FP) PO SCH (10:23)
[2022-12-12] MEDS: MAGNESIUM OXIDE 400 MG TABLET (FP) PO SCH ×2 (10:23→22:25)
[2022-12-12] MEDS: APIXABAN 5 MG TABLET PO SCH ×2 (10:24→22:24)
[2022-12-12] MEDS: AMIODARONE HCL 200 MG TABLET PO SCH (10:24)
[2022-12-12] MEDS: MIRTAZAPINE 15 MG TABLET (FP) PO SCH (22:23)
[2022-12-12] MEDS: ATORVASTATIN CA 40 MG TABLET (FP) PO SCH (22:25)
[2022-12-13 00:04] VITALS: RESP 18
[2022-12-13] MEDS: INSULIN (LEVEMIR) 100 UNITS/ML UNITS SQ SCH ×2 (06:04→22:44)
[2022-12-13] MEDS: INSULIN SLIDING SCALE (NOVOLOG) 1 VIAL SQ SCH ×3 (06:07→17:46)
[2022-12-13] MEDS: CLOPIDOGREL BISULFATE 75 MG TABLET (FP) PO SCH (09:29)
[2022-12-13] MEDS: FINASTERIDE 5 MG TABLET (FP) PO SCH (09:29)
[2022-12-13] MEDS: MAGNESIUM OXIDE 400 MG TABLET (FP) PO SCH ×2 (09:29→22:44)
[2022-12-13] MEDS: AMIODARONE HCL 200 MG TABLET PO SCH (09:29)
[2022-12-13] MEDS: APIXABAN 5 MG TABLET PO SCH ×2 (09:29→22:46)
[2022-12-13] MEDS: PANTOPRAZOLE SODIUM 40 MG VIAL IVPUSH SCH (09:29)
[2022-12-13] MEDS: MIRTAZAPINE 15 MG TABLET (FP) PO SCH (22:45)
[2022-12-13] MEDS: SACUBITRIL/VALSARTAN 24 MG-26 MG TABLET PO SCH (22:46)
[2022-12-13] MEDS: ATORVASTATIN CA 40 MG TABLET (FP) PO SCH (22:46)
[2022-12-14] MEDS: INSULIN (LEVEMIR) 100 UNITS/ML UNITS SQ SCH (06:57)
[2022-12-14] MEDS: INSULIN SLIDING SCALE (NOVOLOG) 1 VIAL SQ SCH ×2 (06:58→11:41)
[2022-12-14 08:17] LABS: BASO % 0.4 % (0-2.0); HEMATOCRIT 34.3 % (35.4-49); HEMOGLOBIN 11.8 GM/dL (11.7-16.9); LYMPH % 24.6 % (8-40); MCH 29.4 pg (25.7-33.7); MCHC 34.4 g/dl (32.0-35.9); MEAN CELL VOLUME 85.4 fl (80-96); MEAN PLT VOLUME 11.1 fl (7.5-11.1); MONO % 7.4 % (3.8-10.2); NEUT % 63.6 % (42.8-82.8); PLATELET COUNT 159 10^3/uL (134-434); RBC 4.02 M/mm3 (4.00-5.60); RDW 15.4 % (11.9-15.9); WHITE BLOOD COUNT 7.7 K/mm3 (4.0-10.0)
[2022-12-14 09:20] LABS: ALBUMIN 2.9 g/dl (3.4-5.0); CALCIUM 8.7 mg/dL (8.5-10.1)
[2022-12-14 09:21] LABS: BLOOD UREA NITROGEN 22.9 mg/dL (7-18)
[2022-12-14 09:23] LABS: CREATININE 1.2 mg/dL (0.55-1.3)
[2022-12-14 09:24] LABS: BILIRUBIN,TOTAL 0.3 mg/dL (0.2-1); TOT PROT 5.3 g/dl (6.4-8.2)
[2022-12-14] MEDS ORDERED: PANTOPRAZOLE 40 MG TABLET PO SCH (09:30)
[2022-12-14] MEDS: CLOPIDOGREL BISULFATE 75 MG TABLET (FP) PO SCH (10:26)
[2022-12-14] MEDS: SACUBITRIL/VALSARTAN 24 MG-26 MG TABLET PO SCH (10:26)
[2022-12-14] MEDS: APIXABAN 5 MG TABLET PO SCH (10:27)
[2022-12-14] MEDS: AMIODARONE HCL 200 MG TABLET PO SCH (10:27)
[2022-12-14] MEDS: MAGNESIUM OXIDE 400 MG TABLET (FP) PO SCH (10:27)
[2022-12-14] MEDS: FINASTERIDE 5 MG TABLET (FP) PO SCH (10:27)
[2022-12-14 14:54] VITALS: BP 96/52; PULSE 75; TEMP 98.6
[2022-12-14] MEDS ORDERED: FINASTERIDE 5 MG TABLET (FP) PO SCH (17:00)
== END 2022-12-14 16:25 | disposition home or self-care (01) | DRG 313 ==
LOC: JER 10:26 → JERBED 11:54 → J4S 19:03 → OBSVTOIN 12-13 12:33 → J4S 12-13 15:10
PROVIDERS: ADMIT Internal Medicine; ATTEND Internal Medicine
DX: R07.89 Other chest pain (principal); N17.9 Acute kidney failure, unspecified; I50.22 Chronic systolic (congestive) heart failure; I25.10 Atherosclerotic heart disease of native coronary artery without angina pectoris; N40.0 Benign prostatic hyperplasia without lower urinary tract symptoms; K21.9 Gastro-esophageal reflux disease without esophagitis; E11.9 Type 2 diabetes mellitus without complications; E78.5 Hyperlipidemia, unspecified; I11.0 Hypertensive heart disease with heart failure; Z79.84 Long term (current) use of oral hypoglycemic drugs; I25.2 Old myocardial infarction; D64.9 Anemia, unspecified; N28.1 Cyst of kidney, acquired; Z95.810 Presence of automatic (implantable) cardiac defibrillator; I25.5 Ischemic cardiomyopathy
CPT/HCPCS: 0241U-QW; 36415; 71045-TC-FY; 74019-TC-FY; 76700-TC; 80048; 80053; 82550; 82962; 83036; 83690; 83735; 83880; 84100; 84439; 84443; 84484; 85025; 85610; 85730; 93005; 93010; 97116-GP; 97161-GP; 99285-25; C9803-CS; G0378; U0003; U0005

== ENCOUNTER 2023-09-04 16:16 | Emergency (ER) | payer OTHER ==
[2023-09-04 16:21] VITALS: BP 147/57; PULSE 64; RESP 16; TEMP 98; BMI 31.9
[2023-09-04] MEDS ORDERED: LIDOCAINE 4% PATCH TP ONE ×2 (18:59→19:43)
[2023-09-04] MEDS ORDERED: ACETAMINOPHEN 500 MG TABLET (FP) PO ONE (18:59)
[2023-09-04] MEDS ORDERED: ACETAMINOPHEN 500 MG TABLET (FP) ONE (19:44)
[2023-09-05] MEDS ORDERED: LIDOCAINE PATCH REMOVAL MC SCH (07:00)
== END 2023-09-04 23:35 | disposition home or self-care (01) ==
LOC: JER 16:16
DX: M54.50 Low back pain, unspecified (principal)
CPT/HCPCS: 72100-TC-FY; 99283-25

== ENCOUNTER 2024-10-03 09:19 | Inpatient (IN) | payer OTHER ==
[2024-10-03] MEDS ORDERED: BACITRACIN 0.9 GM PACKET ONE (10:47)
[2024-10-03 11:05] LABS: BASO % 0.4 % (0-2.0); EOS % 0.5 % (0-4.5); HEMATOCRIT 46.8 % (35.4-49); HEMOGLOBIN 14.9 GM/dL (11.7-16.9); LYMPH % 4.2 % (8-40); MCHC 31.8 g/dl (32.0-35.9); MEAN CELL VOLUME 84.9 fl (80-96); MEAN PLT VOLUME 9.2 fl (7.5-11.1); MONO % 6.2 % (3.8-10.2); NEUT % 88.7 % (42.8-82.8); PLATELET COUNT 160 10^3/uL (134-434); RBC 5.51 M/mm3 (4.00-5.60); RDW 15.8 % (11.9-15.9); WHITE BLOOD COUNT 8.2 K/mm3 (4.0-10.0)
[2024-10-03 11:35] LABS: POTASSIUM 4.6 mmol/L (3.5-5.1)
[2024-10-03 11:37] LABS: ALBUMIN 3.3 g/dl (3.4-5.0)
[2024-10-03 11:38] LABS: BLOOD UREA NITROGEN 23.2 mg/dL (7-18); MAGNESIUM 2.2 mg/dL (1.8-2.4)
[2024-10-03 11:41] LABS: CREATININE 1.6 mg/dL (0.55-1.3)
[2024-10-03 11:42] LABS: BILIRUBIN,TOTAL 0.5 mg/dL (0.2-1); TOT PROT 6.5 g/dl (6.4-8.2)
[2024-10-03 11:46] LABS: N-TERMINAL BNP 5768.6 pg/ml (5-125)
[2024-10-03] MEDS ORDERED: OSELTAMIVIR PHOSPHATE 75 MG CAPSULE ONE (12:31)
[2024-10-03] MEDS ORDERED: ASPIRIN 81 MG CHEWABLE TABLETS ONE (12:31)
[2024-10-03] MEDS: OSELTAMIVIR PHOSPHATE 75 MG CAPSULE PO ONE (12:36)
[2024-10-03] MEDS: ASPIRIN 81 MG CHEWABLE TABLETS PO ONE (12:36)
[2024-10-03] MEDS: ACETAMINOPHEN 1000 MG/100 ML BAG IVPB PRN (21:25)
[2024-10-03] MEDS: APIXABAN 5 MG TABLET PO SCH (21:25)
[2024-10-03] MEDS ORDERED: ATORVASTATIN CA 40 MG TABLET (FP) PO SCH (22:00)
[2024-10-04 00:53] VITALS: BMI 31.7
[2024-10-04 08:53] LABS: HEMATOCRIT 44.5 % (35.4-49); HEMOGLOBIN 14.5 GM/dL (11.7-16.9); MCH 27.6 pg (25.7-33.7); MCHC 32.6 g/dl (32.0-35.9); MEAN CELL VOLUME 84.5 fl (80-96); MEAN PLT VOLUME 9.9 fl (7.5-11.1); PLATELET COUNT 133 10^3/uL (134-434); RBC 5.26 M/mm3 (4.00-5.60); RDW 16.1 % (11.9-15.9); WHITE BLOOD COUNT 7.1 K/mm3 (4.0-10.0)
[2024-10-04 09:11] LABS: POTASSIUM 4.6 mmol/L (3.5-5.1)
[2024-10-04 09:16] LABS: ALBUMIN 2.9 g/dl (3.4-5.0); BLOOD UREA NITROGEN 36.5 mg/dL (7-18); CALCIUM 8.2 mg/dL (8.5-10.1); MAGNESIUM 2.1 mg/dL (1.8-2.4)
[2024-10-04 09:19] LABS: CREATININE 1.8 mg/dL (0.55-1.3); PHOSPHOROUS 3.1 mg/dL (2.5-4.9)
[2024-10-04 09:20] LABS: BILIRUBIN,TOTAL 0.7 mg/dL (0.2-1); TOT PROT 5.8 g/dl (6.4-8.2)
[2024-10-04] MEDS: OSELTAMIVIR PHOSPHATE 30 MG CAPSULE PO SCH (09:48)
[2024-10-04] MEDS: FINASTERIDE 5 MG TABLET (FP) PO SCH (09:49)
[2024-10-04] MEDS: FAMOTIDINE 20 MG TABLET PO SCH (09:49)
[2024-10-04] MEDS: SACUBITRIL/VALSARTAN 24 MG-26 MG TABLET PO SCH (09:49)
[2024-10-04] MEDS: MAGNESIUM OXIDE 400 MG TABLET (FP) PO SCH (09:49)
[2024-10-04] MEDS: AMIODARONE HCL 200 MG TABLET PO SCH (09:49)
[2024-10-04] MEDS: INSULIN ASPART SLIDING SCALE (NOVOLOG) 1 VIAL SQ SCH (11:58)
[2024-10-04] MEDS ORDERED: MEXILETINE HCL 150 MG PO SCH (14:00)
[2024-10-04] MEDS: ATORVASTATIN CA 40 MG TABLET (FP) PO SCH (21:10)
[2024-10-04] MEDS: MIRTAZAPINE 15 MG TABLET (FP) PO SCH (21:11)
[2024-10-04] MEDS: INSULIN (LEVEMIR) 100 UNITS/ML UNITS SQ SCH (21:13)
[2024-10-05 12:16] LABS: BASO % 0.3 % (0-2.0); EOS % 0.3 % (0-4.5); HEMATOCRIT 42.8 % (35.4-49); HEMOGLOBIN 13.6 GM/dL (11.7-16.9); LYMPH % 10.4 % (8-40); MCH 26.9 pg (25.7-33.7); MCHC 31.8 g/dl (32.0-35.9); MEAN CELL VOLUME 84.6 fl (80-96); MEAN PLT VOLUME 9.6 fl (7.5-11.1); MONO % 7.4 % (3.8-10.2); NEUT % 81.6 % (42.8-82.8); PLATELET COUNT 117 10^3/uL (134-434); RBC 5.05 M/mm3 (4.00-5.60); RDW 15.8 % (11.9-15.9); WHITE BLOOD COUNT 7.8 K/mm3 (4.0-10.0)
[2024-10-05 12:39] LABS: POTASSIUM 4.2 mmol/L (3.5-5.1)
[2024-10-05 12:40] LABS: CALCIUM 7.8 mg/dL (8.5-10.1)
[2024-10-05 12:41] LABS: BLOOD UREA NITROGEN 50.9 mg/dL (7-18)
[2024-10-05 12:44] LABS: CREATININE 1.9 mg/dL (0.55-1.3)
[2024-10-05] MEDS: SODIUM CHLORIDE 250 ML IV STA (20:22)
[2024-10-05] MEDS: INSULIN (LEVEMIR) 100 UNITS/ML UNITS SQ SCH (22:33)
[2024-10-06 07:14] LABS: BASO % 0.2 % (0-2.0); EOS % 0.7 % (0-4.5); HEMATOCRIT 43.2 % (35.4-49); HEMOGLOBIN 13.6 GM/dL (11.7-16.9); MCH 26.5 pg (25.7-33.7); MCHC 31.4 g/dl (32.0-35.9); MEAN CELL VOLUME 84.3 fl (80-96); MEAN PLT VOLUME 9.6 fl (7.5-11.1); MONO % 9.7 % (3.8-10.2); NEUT % 76.4 % (42.8-82.8); PLATELET COUNT 116 10^3/uL (134-434); RBC 5.12 M/mm3 (4.00-5.60); RDW 15.8 % (11.9-15.9); WHITE BLOOD COUNT 7.2 K/mm3 (4.0-10.0)
[2024-10-06 07:29] LABS: POTASSIUM 3.9 mmol/L (3.5-5.1)
[2024-10-06 07:35] LABS: BLOOD UREA NITROGEN 56.2 mg/dL (7-18)
[2024-10-06 07:38] LABS: CREATININE 1.9 mg/dL (0.55-1.3)
[2024-10-06] MEDS: SODIUM CHLORIDE 1,000 ML IV SCH (10:18)
[2024-10-07 08:20] LABS: BASO % 0.2 % (0-2.0); EOS % 1.9 % (0-4.5); HEMATOCRIT 40.5 % (35.4-49); HEMOGLOBIN 13.4 GM/dL (11.7-16.9); LYMPH % 11.9 % (8-40); MCH 27.3 pg (25.7-33.7); MCHC 33.2 g/dl (32.0-35.9); MEAN CELL VOLUME 82.3 fl (80-96); MEAN PLT VOLUME 9.4 fl (7.5-11.1); MONO % 8.7 % (3.8-10.2); NEUT % 77.3 % (42.8-82.8); PLATELET COUNT 136 10^3/uL (134-434); RBC 4.91 M/mm3 (4.00-5.60); RDW 16.1 % (11.9-15.9); WHITE BLOOD COUNT 6.8 K/mm3 (4.0-10.0)
[2024-10-07 08:39] LABS: POTASSIUM 4.3 mmol/L (3.5-5.1)
[2024-10-07 08:51] LABS: CALCIUM 8.1 mg/dL (8.5-10.1)
[2024-10-07 08:55] LABS: CREATININE 1.5 mg/dL (0.55-1.3)
[2024-10-08 08:57] LABS: BASO % 0.3 % (0-2.0); EOS % 2.4 % (0-4.5); HEMATOCRIT 42.8 % (35.4-49); HEMOGLOBIN 13.5 GM/dL (11.7-16.9); LYMPH % 11.4 % (8-40); MCH 26.6 pg (25.7-33.7); MCHC 31.6 g/dl (32.0-35.9); MEAN CELL VOLUME 84.1 fl (80-96); MEAN PLT VOLUME 10.1 fl (7.5-11.1); MONO % 10.7 % (3.8-10.2); NEUT % 75.2 % (42.8-82.8); PLATELET COUNT 162 10^3/uL (134-434); RBC 5.09 M/mm3 (4.00-5.60); RDW 16.1 % (11.9-15.9); WHITE BLOOD COUNT 8.4 K/mm3 (4.0-10.0)
[2024-10-08 09:03] LABS: POTASSIUM 4.7 mmol/L (3.5-5.1)
[2024-10-08 09:06] LABS: BLOOD UREA NITROGEN 34.3 mg/dL (7-18)
[2024-10-08 09:07] LABS: MAGNESIUM 2.3 mg/dL (1.8-2.4)
[2024-10-08 09:10] LABS: CREATININE 1.1 mg/dL (0.55-1.3)
[2024-10-08] MEDS: SACUBITRIL/VALSARTAN 24 MG-26 MG TABLET PO SCH (10:54)
[2024-10-08 11:03] VITALS: RESP 18
[2024-10-08 12:41] LABS: N-TERMINAL BNP 1869.6 pg/ml (5-125)
[2024-10-08] MEDS: ALBUTEROL SO4 HFA INHALER IH PRN (13:14)
[2024-10-08] MEDS: FUROSEMIDE 40 MG TABLET (FP) PO SCH (13:14)
[2024-10-08] MEDS: guaiFENesin 200 MG/10 ML 10 ML UNIT-DOSE CUPS PO PRN (13:15)
[2024-10-08 14:42] VITALS: BP 120/63; PULSE 77; TEMP 98.7
[2024-10-09] MEDS ORDERED: EMPAGLIFLOZIN (JARDIANCE) 10 MG TABLET PO SCH (10:00)
== END 2024-10-08 16:00 | DRG 683 ==
LOC: JER 09:19 → JERBED 13:12 → J4S 17:55 → OBSVTOIN 10-04 15:37
PROVIDERS: ADMIT Internal Medicine; ATTEND Internal Medicine
DX: N17.9 Acute kidney failure, unspecified (principal); I13.0 Hypertensive heart and chronic kidney disease with heart failure and stage 1 through stage 4 chronic kidney disease, or unspecified chronic kidney disease; I50.22 Chronic systolic (congestive) heart failure; I47.20 Ventricular tachycardia, unspecified; J10.1 Influenza due to other identified influenza virus with other respiratory manifestations; I25.10 Atherosclerotic heart disease of native coronary artery without angina pectoris; I48.91 Unspecified atrial fibrillation; E86.0 Dehydration; E78.5 Hyperlipidemia, unspecified; K21.9 Gastro-esophageal reflux disease without esophagitis; N40.0 Benign prostatic hyperplasia without lower urinary tract symptoms; E11.22 Type 2 diabetes mellitus with diabetic chronic kidney disease; N18.9 Chronic kidney disease, unspecified; W18.30XA Fall on same level, unspecified, initial encounter; Z95.810 Presence of automatic (implantable) cardiac defibrillator; Y92.122 Bedroom in nursing home as the place of occurrence of the external cause; Y99.9 Unspecified external cause status
CPT/HCPCS: 0241U-QW; 36415; 70450-TC; 71045-TC-FY; 72125-TC; 80048; 80053; 82962; 83036; 83735; 83880; 84100; 84484; 85025; 85027; 93005; 93010; 97116-GP; 97162-GP; 99285-25; G0378; J0131